=== PATIENT | female | born 1975 | race Caucasian/White ===

== ENCOUNTER 2018-04-25 17:36 | Emergency (ER) | payer MEDICARE ==
[~2018-04-25] VITALS: Ht 170.2 cm; Wt 133.2 kg
[2018-04-25 18:23] VITALS: Ht 170.2 cm; Wt 133.2 kg
[2018-04-25] MEDS ORDERED: MOBIC7.5 MG PO (18:25)
[2018-04-25] MEDS ORDERED: FLOMAX0.4 MG PO (18:25)
[2018-04-25] MEDS ORDERED: GLUCOPHAGE500 MG PO (18:25)
[2018-04-25] MEDS ORDERED: LISINOPRIL-HCT1 EAC7 PO (18:26)
[2018-04-25] MEDS ORDERED: NOVOLIN 70/30 110 ML SC (18:26)
[2018-04-25] MEDS ORDERED: PRAVACHOL40 MG PO (18:26)
[2018-04-25] MEDS ORDERED: HYDROCODON-ACE1 EA10 PO (18:27)
[2018-04-25] MEDS ORDERED: XANAX0.5 MG PO (18:28)
[2018-04-25 18:52] LABS: BASOPHILS 0.2 % (0-2); EOSINOPHILS 2.9 % (0-7); HEMATOCRIT 42.2 % (36.0-48.0); HEMOGLOBIN 13.9 g/dL (12-16); IMMATURE GRANULOCYTES 0.5 % (0-5); LYMPHOCYTES 19.3 % (15-50); MCH 27.6 pg (26.0-34.0); MCHC 32.9 g/dL (31.0-37.0); MCV 83.7 fL (80.0-100.0); MEAN PLATELET VOLUME 10.2 fL (7.4-10.4); MONOCYTES 6.5 % (2-11); NEUTROPHILS 70.6 % (40-80); PLATELET COUNT 239 10x3/uL (130-400); RBC 5.04 10x6/uL (4.00-5.40); RDW 13.8 % (11.5-14.5)
[2018-04-25 19:07] LABS: ALBUMIN 3.9 g/dL (3.4-5.0); ANION GAP 15.3 mmol/L (8-16); BILIRUBIN - TOTAL 0.55 mg/dL (0.2-1.3); CALCIUM 9.2 mg/dL (8.5-10.1); CARBON DIOXIDE 29.2 mmol/L (21.0-32.0); CREATININE - SERUM 1.2 mg/dL (0.6-1.3); POTASSIUM - SERUM 3.5 mmol/L (3.5-5.1); PROTEIN - SERUM 8.5 g/dL (6.4-8.2)
[2018-04-25 19:32] LABS: APPEARANCE CLEAR (CLEAR); BILIRUBIN NEGATIVE (NEGATIVE); COLOR YELLOW (YELLOW); GLUCOSE NEGATIVE (NEGATIVE); KETONE NEGATIVE (NEGATIVE); NITRITE NEGATIVE (NEGATIVE); PROTEIN NEGATIVE (NEGATIVE); SPECIFIC GRAVITY 1.015 (1.005-1.020); UROBILINOGEN NORMAL (NORMAL)
[2018-04-25 19:33] LABS: BACTERIA MANY /hpf (NONE SEEN)
[2018-04-25 19:34] LABS: MUCUS <1+ /lpf (NONE SEEN)
[2018-04-25 20:28] LABS: HCG URINE NEGATIVE (NEGATIVE)
[2018-04-25] MEDS ORDERED: PHENERGAN25 M1 PO (22:17)
[2018-04-25] MEDS ORDERED: TYLENOL W/CODEI1 TAB PO (22:17)
[2018-04-25] MEDS ORDERED: TORADOL10 MG PO (22:17)
[2018-04-25 22:33] VITALS: BP 122/80
== END 2018-04-25 22:33 | disposition home or self-care (01) ==
LOC: D.ER 17:36
PROVIDERS: Family Medicine
DX: N20.0 Calculus of kidney (principal); N23 Unspecified renal colic; E11.9 Type 2 diabetes mellitus without complications; I10 Essential (primary) hypertension